=== PATIENT | male | born 1935 | race Caucasian/White ===

== ENCOUNTER 2018-12-16 18:36 | Emergency (ER) | payer MEDICARE ==
[2018-12-16 19:39] LABS: ANION GAP 3.8 mmol/L (5-15); CHLORIDE,CL 105 mmol/L (98-115); SODIUM,NA 144 mmol/L (136-145)
[2018-12-16] MEDS ORDERED: Sodium Chloride 0.9% 1,000 ML IV ONE (19:39)
--- NOTE | 2018-12-16 20:13 | EDM.PDOC ---
ED HPI GENERAL MEDICAL PROBLEM - General Chief Complaint: General Stated Complaint: LOW BP Time Seen by Provider: 12/16/18 19:03 Source of Information: Reports: Patient, Mcc Records History Limitations: Reports: No Limitations - History of Present Illness INITIAL COMMENTS - FREE TEXT/NARRATIVE: Patient presents from [place] complaining of fever. He denies any pain except on his tailbone. There is no bed sore. He has severe swelling of lower legs and says they are always swollen but worse now than usual. He was seen to be hypotensive at the [facility] and it continues. - Related Data Allergies Allergy/AdvReac Type Severity Reaction Status Date / Time No Known Drug Allergies Allergy Cannot Verified 12/16/18 18:39 Remember ED ROS GENERAL - Review of Systems Review Of Systems: See Below Constitutional: Reports: Fever (but we didn't see one here) HEENT: Reports: No Symptoms Respiratory: Reports: No Symptoms Cardiovascular: Reports: No Symptoms. Denies: Chest Pain Endocrine: Reports: No Symptoms GI/Abdominal: Denies: Abdominal Pain, Diarrhea, Vomiting : Denies: Dysuria, Flank Pain Musculoskeletal: Reports: Other (pain at coccyx ) Skin: Reports: No Symptoms Neurological: Reports: Difficulty Walking (non-ambulatory). Denies: Trouble Speaking Psychiatric: Denies: Agitation, Anxiety ED EXAM, GENERAL - Physical Exam Exam: See Below Exam Limited By: No Limitations General Appearance: Alert, WD/WN, No Apparent Distress Eye Exam: Bilateral Eye: EOMI, Normal Inspection, PERRL Ears: Normal External Exam, Hearing Grossly Normal Nose: Normal Inspection, No Blood Throat/Mouth: Normal Inspection, Normal Lips, Normal Voice, No Airway Compromise Head: Atraumatic, Normocephalic Neck: Normal Inspection, Full Range of Motion Respiratory/Chest: No Respiratory Distress, Lungs Clear, Normal Breath Sounds, No Accessory Muscle Use Cardiovascular: Regular Rate, Rhythm, No Murmur GI/Abdominal: Soft, Non-Tender, Hernia (umbilical) Rectal (Males) Exam: Other (coccyx and buttocks have no bed sores) Back Exam: Normal Inspection, Full Range of Motion Extremities: Other (Severe ankle edema bilat with blisters and erythema present. 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) Neurological: Alert, Oriented, Other (cognitive level low or confused; unsure and no family present) Psychiatric: Normal Affect, Normal Mood Skin Exam: Warm, Dry, Intact, Normal Color, No Rash Course - Orders/Labs/Meds Orders: Active Orders 24 hr Category Date Time Status Chest 2V [CR] Stat Exams 12/16/18 19:14 Ordered Sodium Chloride 0.9% @ 999 MLS/HR (1000ml) Med 12/16/18 19:39 Ordered Sodium Chloride 0.9% [Normal Saline] 1,000 ml IV .BOLUS Medication Orders Sodium Chloride (Normal Saline) 1,000 mls @ 999 mls/hr IV .BOLUS ONE Stop: 12/16/18 20:39 Labs: Laboratory Tests 12/16/18 12/16/18 12/16/18 Range/Units 18:55 19:14 19:15 WBC 7.77 (5.00-10.00) 10^3/uL RBC 3.86 L (4.50-6.00) 10^6/uL Hgb 10.8 L (13.0-17.0) g/dL Hct 35.5 L (40.0-52.0) % MCV 92.0 (82.0-92.0) fL MCH 28.0 (27.0-31.0) pg MCHC 30.4 L (32.0-36.0) g/dL RDW 18.3 H (11.5-14.5) % Plt Count 255 (150-400) 10^3/uL MPV 9.3 (7.4-10.4) fL Immature Gran % (Auto) 0.1 (0.0-5.0) % Neut % (Auto) 63.9 (50.0-70.0) % Lymph % (Auto) 24.1 (20.0-40.0) % [place] % (Auto) 11.3 H (2.0-8.0) % Eos % (Auto) 0.3 L (1.0-3.0) % Baso % (Auto) 0.3 (0.0-1.0) % Immature Gran # (Auto) 0.01 (0.00-0.50) 10^3/uL Neut # (Auto) 4.97 (2.50-7.00) 10^3/uL Lymph # (Auto) 1.87 (1.00-4.00) 10^3/uL [place] # (Auto) 0.88 H (0.10-0.80) 10^3/uL Eos # (Auto) 0.02 L (0.10-0.30) 10^3/uL Baso # (Auto) 0.02 (0.00-0.10) 10^3/uL Sodium 144 (136-145) mmol/L Potassium 4.1 (3.3-5.3) mmol/L Chloride 105 (98-115) mmol/L Carbon Dioxide 39.3 H (21.0-32.0) mmol/L Anion Gap 3.8 L (5-15) mmol/L BUN 18 (6-25) mg/dL Creatinine 1.06 (0.51-1.17) mg/dL Est Cr Clr Drug Dosing TNP Estimated GFR (MDRD) > 60 mL/min Glucose 126 H (75 - 99) mg/dL Calcium 8.9 (8.7-10.3) mg/dL Total Bilirubin 0.8 (0.2-1.0) mg/dL AST 18 (15-37) U/L ALT 17 (12-78) U/L Alkaline Phosphatase 78 (46-116) IU/L B-Natriuretic Peptide 421 H (0-100) pg/mL Total Protein 6.1 L (6.4-8.2) g/dL Albumin 2.47 L (3.00-4.80) g/dL Specimen Type Urincath Urine Color Yellow (YELLOW) Urine Appearance Clear (CLEAR) Urine pH 5.5 (5.0-9.0) Ur Specific [place] 1.020 (1.005-1.030) Urine Protein Negative (NEGATIVE) mg/dL Urine Glucose (UA) Negative (NEGATIVE) mg/dL Urine Ketones Negative (NEGATIVE) mg/dL Urine Occult Blood Moderate H (NEGATIVE) Urine Nitrite Negative (NEGATIVE) Urine Bilirubin Negative (NEGATIVE) Urine Urobilinogen 0.2 (0.2-1.0) E.U./dL Ur Leukocyte Esterase Trace H (NEGATIVE) Urine RBC 40-50 H (0-5) /HPF Urine WBC 10-20 H (0-5) /HPF Ur Epithelial Cells Moderate H /LPF Urine Bacteria Occasional (NONE TO FEW) /HPF Meds: Medications Generic Name Dose Route Start Last Admin Trade Name Freq PRN Reason Stop Dose Admin Sodium Chloride 1,000 mls @ 999 mls/hr 12/16/18 19:39 Normal Saline IV 12/16/18 20:39 .BOLUS ONE - Re-Assessments/Exams Free Text/Narrative Re-Assessment/Exam: 12/16/18 21:17 With the severe fluid accumulation in legs and likely in lungs not as urgent as the hypotension we are giving IV fluids. BP didn't improve so started levophed and waiting on ambulance to take to [facility] where Dr. Morris ICU accepted. Patient has been awake, alert and talking through the visit. 12/16/18 21:34 BP responded to levophed and patient discharged to [facility] via ambulance. Departure - Departure Time of Disposition: 21:16 Disposition: DC/Tfer to Acute Hospital 02 Condition: Fair Clinical Impression: Hypotension Qualifiers: Hypotension type: unspecified hypotension type Qualified Code(s): I95.9 - Hypotension, unspecified Acute exacerbation of CHF (congestive heart failure) Qualifiers: Heart failure type: unspecified Qualified Code(s): I50.9 - Heart failure, unspecified Pneumonia Qualifiers: Laterality: left Lung location: lower lobe of lung - Discharge Information - My Orders Last 24 Hours: My Active Orders 12/16/18 19:14 Chest 2V [CR] Stat 12/16/18 19:39 Sodium Chloride 0.9% @ 999 MLS/HR (1000ml) Sodium Chloride 0.9% [Normal Saline] 1,000 ml IV .BOLUS - Assessment/Plan Last 24 Hours: My Active Orders 12/16/18 19:14 Chest 2V [CR] Stat 12/16/18 19:39 Sodium Chloride 0.9% @ 999 MLS/HR (1000ml) Sodium Chloride 0.9% [Normal Saline] 1,000 ml IV .BOLUS
--- NOTE | 2018-12-16 20:26 | CR ---
[id number] RAD/RAD Chest PA And Lateral EXAM: RAD Chest PA And Lateral INDICATION: FEVER, HYPOXIC, HYPOTENSION COMPARISON: None available. DISCUSSION: Cardiomediastinal silhouette is enlarged. Low lung volumes associated vascular crowding. There is central pulmonary vascular congestion with patchy airspace opacifications bilaterally. Small left pleural effusion. IMPRESSION: Findings are most suggestive of acute congestive heart failure exacerbation. Left basilar pulmonary infiltrate is not excluded. Follow-up imaging after appropriate therapy is recommended. Aureliano Murdock DO 12/16/182023 Thank you for allowing us to participate in the care of your patient.
[2018-12-16] MEDS ORDERED: Sodium Chloride 0.9% 10 ML Syringe FLUSH PRN (20:39)
[2018-12-16] MEDS ORDERED: Norepinephrine 4 MG in Dextrose 5% in Water 246 ML IV SCH ×2 (21:15)
== END 2018-12-16 21:30 ==
LOC: KA.ED 18:36
DX: I50.9 Heart failure, unspecified (principal); J18.1 Lobar pneumonia, unspecified organism; I95.9 Hypotension, unspecified
CPT/HCPCS: 36415; 71046; 80053; 81001; 83880; 85025; 96361; 96374; 99283; 99285; J7030; J7060